=== PATIENT | female | born 1990 | race Caucasian/White ===

== ENCOUNTER 2017-05-19 18:34 | Emergency (ER) | payer BC ==
[2017-05-19] MEDS ORDERED: Ketorolac INJ* 60 MG/2 ML VIAL IM ONE (19:14)
[2017-05-19] MEDS ORDERED: Cyclobenzaprine TAB* 10 MG PO ONE (19:15)
[2017-05-19 19:38] VITALS: BP 131/87
--- NOTE | 2017-05-19 20:34 | UC ---
[facility] HPI - HPI Summary HPI Summary: left tmp painful---has had issues on off for years---unsure if she is grinding her teeth or not Seen dentist but did not offer any treatment - History of Current Complaint Chief Complaint: UCDentalProblem Stated Complaint: FACIAL/JAW PAIN Time Seen by Provider: 05/19/17 19:07 Hx Obtained From: Patient Hx Last Menstrual Period: IUD ?: No Onset/Duration: Gradual Onset, Lasting Days Severity: Moderate Pain Intensity: 6 Pain Scale Used: 0-10 Numeric Aggravating Factor(s): Chewing Alleviating Factor(s): Topical Meds Related History: TMJ Dysfunction - Allergies/Home Medications Allergies/Adverse Reactions: Allergies Allergy/AdvReac Type Severity Reaction Status Date / Time Latex Allergy Rash Verified 05/19/17 19:16 Home Medications: Home Medications Acetaminophen TAB* [Tylenol TAB*] 1,000 mg PO Q4H PRN 05/19/17 [History Confirmed 05/19/17] PMH/Surg Hx/FS Hx/Imm Hx Previously Healthy: Yes - Surgical History Surgical History: Yes Surgery Procedure, Year, and Place: inguinal hernia repair age 6 - Family History Known Family History: Positive: Other - Dad with hypothyroidism Negative: Cardiac Disease, Hypertension, Diabetes - Social History Occupation: Employed Full-time Lives: With Family Alcohol Use: Rare Substance Use Type: None Smoking Status (MU): Never Smoked Tobacco Have You Smoked in the Last Year: No Review of Systems Constitutional: Negative Skin: Negative Eyes: Negative ENT: Negative, Other - left tmj pain Respiratory: Negative Cardiovascular: Negative Gastrointestinal: Negative Genitourinary: Negative Motor: Negative Neurovascular: Negative Musculoskeletal: Negative Neurological: Negative Psychological: Negative Is Patient Immunocompromised?: No All Other Systems Reviewed And Are Negative: Yes Physical Exam Triage Information Reviewed: Yes Appearance: Well-Appearing, No Pain Distress, Well-Nourished Vital Signs: Initial Vital Signs Temp 98.4 F 05/19/17 19:08 Pulse 70 05/19/17 19:08 Resp 16 05/19/17 19:08 BP 131/87 05/19/17 19:08 Pulse Ox 100 05/19/17 19:08 Vital Signs Reviewed: Yes Eye Exam: Normal Eyes: Positive: Conjunctiva Clear ENT Exam: Normal ENT: Positive: Normal ENT inspection, Hearing grossly normal, Pharynx normal, TMs normal. Negative: Nasal congestion, Nasal drainage, Tonsillar swelling, Tonsillar exudate Dental Exam: Normal Dental: Positive: Other: - no click with ROM Neck exam: Normal Neck: Positive: Supple, Nontender, No Lymphadenopathy Respiratory Exam: Normal Respiratory: Positive: Chest non-tender, Lungs clear, Normal breath sounds, No respiratory distress, No accessory muscle use Cardiovascular Exam: Normal Cardiovascular: Positive: RRR, No Murmur, Pulses Normal, Brisk Capillary Refill Musculoskeletal Exam: Normal Musculoskeletal: Positive: Strength Intact, ROM Intact, No Edema Neurological Exam: Normal Neurological: Positive: Alert, Muscle Tone Normal Psychological Exam: Normal Skin Exam: Normal Dental Complaint Course/Dx - Course Course Of Treatment: tordal, flexeril, stop tylenol, heat follow with oral surgeon - Differential Dx/Diagnosis Provider Diagnoses: Left TMJ pain Discharge - Discharge Plan Condition: Stable Disposition: HOME Prescriptions: Cyclobenzaprine TAB* [Flexeril 10 MG TAB*] 10 mg PO TID PRN #15 tab PRN Reason: muscle spasm, tightness Ketorolac TAB * [Toradol TAB *] 10 mg PO TID #15 tab Patient Education Materials: Temporomandibular Disorder (ED) Referrals: Tarun Baez MD [Doctor of Dental Medicine] - As Soon As Possible James Fuchs DDS [Doctor of Dental Surgery] - As Soon As Possible Param Cummings DMD [Doctor of Dental Medicine] - As Soon As Possible
== END 2017-05-19 19:45 | disposition home or self-care (01) ==
LOC: UCCORT 18:34
DX: M26.622 Arthralgia of left temporomandibular joint (principal)
CPT/HCPCS: 96372; 99212; A9270-GY; G0463; J1885

== ENCOUNTER 2017-09-20 20:17 | Emergency (ER) | payer BC, OTHER ==
[2017-09-20 20:40] VITALS: BP 119/73
--- NOTE | 2017-09-20 20:59 | UC ---
Head Injury HPI - HPI Summary HPI Summary: Per senior field engineer "during soccer game, collided with another player, hit right temporal area, denies loc, played rest of game." -incident occurred tonight. pain at right roman catholic area (inferior to roman catholic and superior to ear). + dizziness. Lights are slightly bothersome. +HERNANDEZ. no confusion or nausea. 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 -denies . has mirena, no menses in long time, but agrees to HCG. -no blurry vision, slurred speech or w/n/t - History Of Current Complaint Chief Complaint: UCHeadache Stated Complaint: HEAD INJ - SOCCER Time Seen by Provider: 09/20/17 20:58 Hx Last Menstrual Period: IUD Pain Intensity: 6 - Allergies/Home Medications Allergies/Adverse Reactions: Allergies Allergy/AdvReac Type Severity Reaction Status Date / Time Latex, Natural Rubber Allergy Rash Verified 09/20/17 20:45 Home Medications: Home Medications ARIPiprazole TAB* [Abilify 2 MG TAB*] 2 mg PO DAILY 09/20/17 [History Confirmed 09/20/17] Bupropion XL* [Wellbutrin XL *] 100 mg PO DAILY 09/20/17 [History Confirmed ] Levonorgestrel (Iud) [Mirena IUD] 20 mcg IU DAILY 09/20/17 [History Confirmed ] OXcarbazepine TAB(*) [Trileptal 300 mg TAB(*)] 450 mg PO BEDTIME 09/20/17 [ History Confirmed 09/20/17] clonazePAM TAB(*) [Klonopin TAB(*)] 0.5 mg PO BEDTIME 09/20/17 [History Confirmed 09/20/17] PMH/Surg Hx/FS Hx/Imm Hx Previously Healthy: Yes Psychological History: Other - mood d/o Other Psychological History: Mood d/o - Surgical History Surgical History: Yes Surgery Procedure, Year, and Place: inguinal hernia repair age 6 - Family History Known Family History: Positive: Other - Dad with hypothyroidism Negative: Cardiac Disease, Hypertension, Diabetes - Social History Alcohol Use: Rare Substance Use Type: None Smoking Status (MU): Never Smoked Tobacco Have You Smoked in the Last Year: No Review of Systems Constitutional: Negative Skin: Negative Eyes: Photophobia ENT: Negative Respiratory: Negative Cardiovascular: Negative Gastrointestinal: Negative Genitourinary: Negative Motor: Negative Neurovascular: Negative Musculoskeletal: Negative Neurological: Headache Psychological: Negative Is Patient Immunocompromised?: No All Other Systems Reviewed And Are Negative: Yes Physical Exam Triage Information Reviewed: Yes Appearance: Well-Appearing, No Pain Distress, Well-Nourished - sitting w/ lights half off Vital Signs: Initial Vital Signs Temp 98.2 F 09/20/17 20:34 Pulse 112 09/20/17 20:34 Resp 18 09/20/17 20:34 BP 119/73 09/20/17 20:34 Pulse Ox 100 09/20/17 20:34 Vital Signs Reviewed: Yes Eye Exam: Normal ENT Exam: Normal ENT: Positive: Pharynx normal Dental Exam: Normal Neck exam: Normal Neck: Positive: Supple, Nontender, No Lymphadenopathy Respiratory: Positive: Chest non-tender, Lungs clear, Normal breath sounds, No respiratory distress, No accessory muscle use Cardiovascular Exam: Normal Cardiovascular: Positive: RRR - apical and rpt < 100, No Murmur, Pulses Normal Abdomen Description: Positive: Nontender, Soft Musculoskeletal Exam: Normal Musculoskeletal: Positive: Other: - slight-moderate tenderness at rt skull ( inferior to roman catholic and superior to ear at hair line). Neurological Exam: Normal Neurological: Positive: Other: - Cr III-XII intact. strength 5/5 UE & LE prox and distal. + 2 B/T/BR b/l. no dysdiadokinesia. neg rhomberg, no pronator drift , tandem gait nml, nml toe and heel walk. Psychological Exam: Normal Skin Exam: Normal Head Injury Course/Dx - Course Course Of Treatment: -urine HCG - neg. -CT head - neg copy of report given to pt. no frx. - Differential Dx/Diagnosis Differential Diagnosis/HQI/PQRI: Concussion Without LOC, Skull Fracture Provider Diagnoses: Concussion w/o LOC. Discharge - Sign-Out/Discharge Documenting (check all that apply): Discharge - Discharge Plan Condition: Stable Disposition: HOME Patient Education Materials: Concussion (ED) Forms: *Work Release Referrals: No Primary Care Phys,NOPCP [Primary Care Provider] - Additional Instructions: -Follow up with your primary care in 3 days at [facility]. you should not participate in any sports until at least 1 week after you have been symptom free. Your primary care will direct you further after regular follow ups until your symptoms resolve. - Billing Disposition and Condition Condition: STABLE Disposition: HOME
--- NOTE | 2017-09-20 21:40 | RAD ---
INDICATION: Right anglican head trauma with concussion. COMPARISON: There are no prior studies available for comparison. TECHNIQUE: Contiguous axial sections of the brain were obtained from the skull base to the vertex without contrast. FINDINGS: The ventricles, cisterns and sulci are within normal limits. No significant focal abnormality or mass effect is seen. There is no evidence for hemorrhage. No significant focal osseous abnormality is seen. The visualized portion of the paranasal sinuses and mastoid air cells appear clear. IMPRESSION: NO EVIDENCE FOR ACUTE INTRACRANIAL ABNORMALITY.
== END 2017-09-20 21:55 | disposition home or self-care (01) ==
LOC: UCCORT 20:17
DX: F39 Unspecified mood [affective] disorder (principal); S06.0X0A Concussion without loss of consciousness, initial encounter; W51.XXXA Accidental striking against or bumped into by another person, initial encounter; Y93.66 Activity, soccer; Y92.9 Unspecified place or not applicable; Z32.02 Encounter for pregnancy test, result negative
CPT/HCPCS: 70450; 84702; 99211; G0463

== ENCOUNTER 2018-02-07 19:44 | Emergency (ER) | payer BC, OTHER ==
[2018-02-07 20:37] VITALS: BP 106/71
--- NOTE | 2018-02-07 21:06 | UC ---
Lower Extremity/Ankle HPI - HPI Summary HPI Summary: Per vest finisher: "RT ANKLE INJURY PLAYING SOCCER THIS EVENING, TWISTING INJURY, STS LATERAL ASPECT, PAIN POSTERIOR, LATERAL AND MEDIAL ASPECTS" -she is here w/ her 6 yr old son. has had several ankle sprain injuries but usually to left leg. able to bear some weight. there was immediate lateral right swelling up to the top of the nova guard. no numbing or tingling. 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 - History of Current Complaint Chief Complaint: UCLowerExtremity Stated Complaint: RIGHT ANKLE INJURY Time Seen by Provider: 02/07/18 20:42 Hx Last Menstrual Period: has mirena Pain Intensity: 7 - Allergies/Home Medications Allergies/Adverse Reactions: Allergies Allergy/AdvReac Type Severity Reaction Status Date / Time Latex, Natural Rubber Allergy Rash Verified 02/07/18 20:36 PMH/Surg Hx/FS Hx/Imm Hx Previously Healthy: Yes - Surgical History Surgical History: Yes Surgery Procedure, Year, and Place: inguinal hernia repair age 6 - Family History Known Family History: Positive: Other - Dad with hypothyroidism Negative: Cardiac Disease, Hypertension, Diabetes - Social History Alcohol Use: Rare Substance Use Type: None Smoking Status (MU): Never Smoked Tobacco Have You Smoked in the Last Year: No Review of Systems Constitutional: Negative Skin: Negative Eyes: Negative ENT: Negative Respiratory: Negative Cardiovascular: Negative Gastrointestinal: Negative Genitourinary: Negative Motor: Negative Neurovascular: Negative Musculoskeletal: Other: - right lateral ankle pain and swelling Neurological: Negative Psychological: Negative Is Patient Immunocompromised?: No All Other Systems Reviewed And Are Negative: Yes Physical Exam Triage Information Reviewed: Yes Appearance: Well-Appearing, No Pain Distress, Well-Nourished - in wheelchair. notable difficulty trying to ambulate w/o assistance. Vital Signs: Initial Vital Signs Temp 98.4 F 02/07/18 20:32 Pulse 88 02/07/18 20:32 Resp 16 02/07/18 20:32 BP 106/71 02/07/18 20:32 Pulse Ox 100 02/07/18 20:32 Vital Signs Reviewed: Yes ENT Exam: Normal Respiratory Exam: Normal Cardiovascular Exam: Normal Neurological Exam: Normal Neurological: Positive: Other: - right lateral ankle w/ moderate swelling. + tender. no bruising. mortise intact. CR brisk. good ROM of toes. tender w/ plantar pressure. sensation inatct Psychological Exam: Normal Skin: Positive: Other - supeficial abrasaion to right superior nova Lower Extremity Course/Dx - Course Course Of Treatment: xray reviewed by myself shows no obvious frx. + soft tissue swelling. await official xray in AM from radiologist. we will notify if different. no frx noted ~ mid way up tib and fibula. no pain or tenderness proximal lower extremity. - Differential Dx/Diagnosis Differential Diagnosis/HQI/PQRI: Contusion, Dislocation, Fracture (Closed), Sprain, Strain Provider Diagnoses: rt ankle sprain Discharge - Sign-Out/Discharge Documenting (check all that apply): Patient Departure All imaging exams completed and their final reports reviewed: No - Discharge Plan Condition: Stable Disposition: HOME Patient Education Materials: Ankle Sprain (ED) Forms: *Work Release Referrals: Shay Matos MD [Primary Care Provider] - 5 Days Additional Instructions: -Make sure to apply ice as much as possible, 20 mins on, 20 mins off with towel barrier. Ibuprofen 600-800mgs will help paina dn swelling. We takled about some exercise. You should have repeat xrays considered if pain worsens or does not improve over the next 2 weeks as it can take that long for a fracture to be apparent. - Billing Disposition and Condition Condition: STABLE Disposition: Home
--- NOTE | 2018-02-08 08:12 | RAD ---
Indication: Right ankle pain after injury. 3 views of the right ankle demonstrates soft tissue swelling laterally. No obvious fracture is noted. Ankle mortise is intact. IMPRESSION: Soft tissue swelling without fracture. R0
--- NOTE | 2018-02-08 08:58 | UC ---
- Progress Note Progress Note: official ankle xray no frx. soft tissue swelling Discharge - Sign-Out/Discharge Documenting (check all that apply): Post-Discharge Follow Up All imaging exams completed and their final reports reviewed: Yes - Discharge Plan Condition: Stable Disposition: HOME Patient Education Materials: Ankle Sprain (ED) Forms: *Work Release Referrals: Shay Matos MD [Primary Care Provider] - 5 Days Additional Instructions: -Make sure to apply ice as much as possible, 20 mins on, 20 mins off with towel barrier. Ibuprofen 600-800mgs will help paina dn swelling. We takled about some exercise. You should have repeat xrays considered if pain worsens or does not improve over the next 2 weeks as it can take that long for a fracture to be apparent. - Billing Disposition and Condition Condition: STABLE Disposition: Home
== END 2018-02-07 21:34 | disposition home or self-care (01) ==
LOC: UCCORT 19:44
DX: S93.401A Sprain of unspecified ligament of right ankle, initial encounter (principal); X50.1XXA Overexertion from prolonged static or awkward postures, initial encounter; Y93.66 Activity, soccer; Y92.9 Unspecified place or not applicable
CPT/HCPCS: 99213; G0463